=== PATIENT | male | born 1960 | race Caucasian/White ===

== ENCOUNTER 2017-01-23 11:09 | Emergency (ER) | payer OTHER ==
--- NOTE | ~2017-01-23 | CR72 ---
[facility] A Service of [facility] RADIOLOGY TEXT RESULTS PATIENT: CHRISTINA FLOR LOCATION: [facility] : 62 UNIT #: [id number] AGE: [address]: Elia Collado MD SEX: M ORDER DR: [id number] [facility] [address] [place], [place] [address] [id number] E MR#: [id number] Acc #: [id number] NAME: CHRISTINA FLOR : 1960 SEX: M STUDY DATE/TIME: 01/23/2017 UNIT: [facility] ROOM: STUDY DESCRIPTION: CR Chest Single View Portable Attending Physician: Elia Collado M.D. Ordering Physician: Ed Doc Shelly Robledo Primary Care Physician: No Primary Care Physician MEDICAL IMAGING REPORT This report is preliminary unless electronic signature is present EXAM Chest portable 01/23/2017 1147 hours. HISTORY 56-year-old man with shortness of air and bilateral lower extremity swelling for 2 days. History of hypertension. COMPARISON 12/22/2016 FINDINGS Portable upright chest demonstrates median sternotomy change with stable cardiomegaly and mediastinal widening. There is bilateral mild interstitial change suggesting edema. There is opacification of the lower half of the left hemithorax, new from the prior study, likely a moderately large left effusion. No definite right effusion. IMPRESSION Stable postop cardiomegaly with mild interstitial change in both lungs, likely mild edema. There is new opacification in the lower half of the left hemithorax, likely a moderately large left effusion which is new or significantly increased from 12/22/2016. Dictated by... Pushpa Olea M.D. THIS IS AN ELECTRONICALLY VERIFIED REPORT Pushpa Olea M.D. at 01/24/2017 9:15 AM Cathy TD: 01/23/2017 16:01 [facility] A Service of [facility] RADIOLOGY TEXT RESULTS PATIENT: CHRISTINA FLOR LOCATION: [facility] #: [id number] : 62 UNIT #: [id number] AGE: [address]: Elia Collado MD SEX: M ORDER DR: JOB #: [id number] MEDICAL IMAGING REPORT Page 1 of 1 COPY
--- NOTE | ~2017-01-23 | EKG ---
PATIENT: CHRISTINA FLOR UNIT #: [id number] Ventricular Rate: 74 BPM Atrial Rate: 74 BPM P-R Interval: 156 ms QRS Duration: 84 ms Q-T Interval: 358 ms QTC Calculation(Bezet): 397 ms P [place]: 34 degrees Calculated R [place]: 25 degrees Calculated T [place]: 17 degrees Diagnosis Line: Normal sinus rhythm Diagnosis Line: Cannot rule out Inferior infarct , age Diagnosis Line: undetermined Diagnosis Line: Abnormal ECG Diagnosis Line: No previous ECGs available Diagnosis Line: Confirmed by SCOTT CHAMPION MD ([id number]) on Diagnosis Line: 01/24/2017 8:47:39 AM INTERPRETING MD: AKIRA CASTILLO
[~2017-01-23 11:09] MED LIST: ACETAMINOPHEN500 M7 PO; BUSPIRONE HCL10 M1 PO; FLOVENT DI50 MCG/DIS INH; GABAPENTIN300 MG PO; HUMULIN 70100 UNIT/1 SUBQ; LIPITOR40 MG PO; LISINOPRIL20 MG PO; LITHIUM CARBON300 M1 PO; METFORMIN HCL500 M1 PO; OMEPRAZOLE20 M1 PO
[2017-01-23 11:34] LABS: BASOPHIL% 0.7 % (0-2.5); EOSINOPHIL# 0.1 X10e3 (0-0.7); EOSINOPHIL% 1.5 % (0.0-7.0); HEMATOCRIT 29.9 % (38.0-50.0); HEMOGLOBIN 9.3 gm/dL (13.0-16.0); LYMPHOCYTE# 0.7 X10e3 (1.0-3.5); LYMPHOCYTE% 15.1 % (17.0-45.0); MEAN CELL VOLUME 75.5 FL (83-96); MEAN CORPUSCULAR HEMOGLOBIN 23.6 PG (28-34); MEAN CORPUSCULAR HGB CONC 31.2 g/dL (30-36); MEAN PLATELET VOLUME 6.7 FL (6.5-11.5); MONOCYTE# 0.4 X10e3 (0-1.0); MONOCYTE% 8.4 % (3.0-12.0); NEUTROPHIL# 3.5 X10e3 (1.5-7.1); NEUTROPHIL% 74.3 % (40-75); PLATELET COUNT 374 X10e3 (140-420); RED BLOOD COUNT 3.96 X10e (3.90-5.60); RED CELL DISTRIBUTION WIDTH 17.3 % (11.0-15.5); WHITE BLOOD COUNT 4.7 X10e3 (4.0-10.5)
[2017-01-23 11:43] LABS: DIFF IND NO
[2017-01-23 12:00] LABS: ALBUMIN SERUM 2.9 g/dL (3.5-5.0); BILIRUBIN, DIRECT 0.1 mg/dL (0.0-0.2); BILIRUBIN,INDIRECT 0.2 mg/dL (0.0-0.9); BILIRUBIN,TOTAL 0.3 mg/dL (0.2-2.0); BUN/CREATININE RATIO 12.22; CALCIUM SERUM 9.3 mg/dL (8.4-10.2); CREATININE SERUM 0.9 mg/dL (0.6-1.4); GLOM FILT RATE Estimated 95.8 mL/min (>60); POTASSIUM 4.6 mmol/L (3.5-5.1); PROTEIN TOTAL SERUM 7.4 g/dL (6.0-8.3)
== END 2017-01-23 15:00 | disposition home or self-care (01) ==
LOC: CED 11:09
DX: J90 Pleural effusion, not elsewhere classified (principal); Z95.1 Presence of aortocoronary bypass graft; Z88.8 Allergy status to other drugs, medicaments and biological substances; Z91.09 Other allergy status, other than to drugs and biological substances
CPT/HCPCS: 36415; 71010; 80048; 80076; 83880; 85025; 93005; 99284

== ENCOUNTER → 2017-02-09 | Outpatient (CLI) | payer OTHER ==
[2017-02-09 14:26] LABS: INR 2.1; PROTHROMBIN TIME (PATIENT) 22.7 SECONDS (9.6-11.5)
== END | disposition home or self-care (01) ==
LOC: CLAB 13:04
PROVIDERS: Internal Medicine Cardiovascular Disease
DX: I21.4 Non-ST elevation (NSTEMI) myocardial infarction (principal)
CPT/HCPCS: 36415; 85610